=== PATIENT | male | born 1995 | race Caucasian/White ===

== ENCOUNTER 2024-01-02 21:02 | Emergency (ER) | payer OTHER ==
[~2024-01-02] VITALS: Ht 185.4 cm; Wt 96.9 kg
[2024-01-02] MEDS: LIDOCAINE 1% MDV 20ML VIAL SC ONE (23:35)
[2024-01-02] MEDS ORDERED: CEPH500T PO (23:50)
[2024-01-02] MEDS: CEPHALEXIN 500 MG CAP PO ONE (23:57)
[2024-01-03 00:05] VITALS: BP 113/64; TEMP 98.6; O2SAT 99
== END 2024-01-03 00:08 | disposition home or self-care (01) ==
LOC: M ED 21:02
DX: S81.812A Laceration without foreign body, left lower leg, initial encounter (principal); W26.0XXA Contact with knife, initial encounter; Y92.010 Kitchen of single-family (private) house as the place of occurrence of the external cause; Y93.G3 Activity, cooking and baking; Y99.9 Unspecified external cause status; Z79.2 Long term (current) use of antibiotics

== ENCOUNTER → 2024-03-28 | Outpatient (CLI) | payer OTHER ==
[~2024-03-28] MED LIST: CEPH500T PO
== END ==
LOC: M OUTALCOH 07:11
PROVIDERS: ATTEND Psychiatry & Neurology Psychiatry
DX: F10.20 Alcohol dependence, uncomplicated (principal); F17.200 Nicotine dependence, unspecified, uncomplicated

== ENCOUNTER 2024-04-27 16:00 | Outpatient (RCR) | payer OTHER | END 2024-05-06 | LOC: M OUTALCOH 16:00 | PROVIDERS: ATTEND Psychiatry & Neurology Psychiatry | DX: F10.20 Alcohol dependence, uncomplicated (principal); F17.200 Nicotine dependence, unspecified, uncomplicated ==

== ENCOUNTER 2024-05-25 16:00 | Outpatient (RCR) | payer OTHER | END 2024-06-06 | LOC: M OUTALCOH 16:00 | PROVIDERS: ATTEND Psychiatry & Neurology Psychiatry | DX: F10.20 Alcohol dependence, uncomplicated (principal); F17.200 Nicotine dependence, unspecified, uncomplicated ==

== ENCOUNTER 2024-06-15 09:55 | Outpatient (RCR) | payer OTHER | END 2024-07-07 | LOC: M OUTALCOH 09:55 | PROVIDERS: ATTEND Psychiatry & Neurology Psychiatry | DX: F10.20 Alcohol dependence, uncomplicated (principal); F17.200 Nicotine dependence, unspecified, uncomplicated ==